=== PATIENT | female | born 1950 | race Hispanic/Latino ===

== ENCOUNTER 2017-03-22 07:03 | Day surgery (SDC) | payer MEDICARE ==
[2017-03-19 12:49] VITALS: BMI 27.3
[2017-03-22 08:20] LABS: HEMATOCRIT 40.5 % (36.0-48.0); MEAN CELL VOLUME 92.3 fL (80.0-105.0); MEAN CORPUSCULAR HEMOGLOBIN 30.5 pg (25.0-35.0); MEAN CORPUSCULAR HGB CONC 33.1 g/dl (31.0-37.0); MEAN PLATELET VOLUME 11.1 fl (7.0-11.0); RED CELL DISTRIBUTION WIDTH 13.4 % (11.5-14.5); WHITE BLOOD COUNT 4.8 10^3/ul (4.5-11.0)
[2017-03-22] MEDS ORDERED: Lidocaine 2% Inj (20ml) ONE (08:28)
[2017-03-22] MEDS ORDERED: Nitroglycerin 50mg in D5W 50 MG/250 ML BOTTLE IV ONE (08:28)
[2017-03-22 08:31] LABS: BLOOD UREA NITROGEN 20 mg/dL (7-21); CALCIUM 10.1 mg/dL (8.4-10.5); CARBON DIOXIDE 27 mmol/L (21-33); CHLORIDE 104 mmol/L (98-107); CHOLESTEROL 214 mg/dL (130-200); GFR AFRICAN-AMERICAN > 60; GLUCOSE,RANDOM 94 mg/dL (70-110); INR 1.05 (0.93-1.08); PARTIAL THROMBOPLASTIN TIME 25.8 Seconds (23.7-30.8); POTASSIUM 4.1 mmol/L (3.6-5.0); SODIUM 141 mmol/L (132-148)
[2017-03-22] MEDS ORDERED: Midazolam 2 MG/2 ML VIAL ONE (08:58)
[2017-03-22] MEDS ORDERED: Bacitracin 500 Units/gm Oint Foilpak UD TOP ONE (09:50)
[2017-03-22] MEDS ORDERED: Sodium Chloride 0.9% 1,000 ML IV SCH (10:00)
[2017-03-22 10:03] VITALS: TEMP 97.5
[2017-03-22] MEDS ORDERED: Bacitracin 500 Units/gm Oint Foilpak UD ONE (11:57)
[2017-03-22 12:16] VITALS: RESP 18; O2SAT 98
[2017-03-22 12:20] VITALS: PULSE 60
[2017-03-22 12:21] VITALS: BP 129/59
--- NOTE | 2017-03-22 16:15 | CARD ---
APPROVED REPORT Procedure(s) performed: Left Heart Catheterization HISTORY The patient is a 66 year-old female with a history of : most recent EF: 75%. (EF Method: RADIONUCLIDE), chronic lung disease, hypertension , MONTERO, chest pain and abnormal stress test maricruz-septal reversible ischemia on stress test dt 03/17/2017.. INDICATION The indication(s) include : positive stress test, chest pain, dyspnea. CASE TECHNIQUE The patient was brought electively to the Cardiac Catheterization Laboratory in a fasting state and was prepped and draped in a sterile manner. The left wrist was infiltrated with 2% Lidocaine subcutaneous anesthesia. A 6 Fr Glidesheath (Radial) sheath was inserted into the left radial artery without difficulty. Coronary angiography was performed using coronary diagnostic catheters. The left coronary system was accessed and visualized with a Diagnostic ,5 Fr JL 3.5 catheter. The right coronary system was accessed and visualized with a Diagnostic ,5 Fr JR 4 catheter. The left ventricle was accessed and visualized with a 5 Fr Pigtail 145 (Angled) catheter. Left ventricular/Aortic Valve gradient assessed on pullback. Left ventriculogram was performed in CONTE projection. Closure device was deployed with a Fr TR Band (Regular) without any complications. The patient tolerated the procedure well and there were no complications associated with the procedure. Vessel Analysis The patient's coronary anatomy is right dominant. The left main coronary artery is a medium size vessel without significant stenosis. The left main bifurcates to the left anterior descending and circumflex. The left anterior descending artery is a medium size vessel with diffuse calcification noted throughout this vessel and without significant stenosis. Very tortous vessel, Distal LAD like a thread, diffusely diseased but no focal flow limiting stenosis. There is a 55-60% stenosis in the very distal segment. Diffusely diseased The circumflex artery is a small size vessel without significant stenosis, diminutive circumflex.. The first obtuse marginal branch is a small size vessel without significant stenosis. The right coronary artery is a large size vessel without significant stenosis. The right posterior descending artery is a very large size vessel without significant stenosis. The right posterolateral branch is a large size vessel without stenosis. Left Ventricle The left ventricle is normal in size with normal contractility. There was no cardiomyopathy. The left ventricular ejection fraction is estimated to be 60-65%. The left ventricular end diastolic pressure is 12-14 mmHg. There was no gradient across the aortic valve upon pullback. Conclusion Non -obstructive CAD, limited to only Very Distal LAD diffusely diseased like a thread, 55-60% stenosis But non focal and non flow limiting. Circumflex is small and diminutive. RCA is a Super dominant vessel. Preserved LV Fx. EF-60-65%, EDP-12-14 mmof Hg. Recommendations Aggressive Medical TherapyCardiac Risk Reduction Program Weight Loss Reduction Program Cc; Drs. Martinez / Michael.
== END 2017-03-22 13:30 | disposition home or self-care (01) ==
LOC: CATH 07:03
PROVIDERS: ATTEND Internal Medicine Cardiovascular Disease
DX: I25.10 Atherosclerotic heart disease of native coronary artery without angina pectoris (principal); I10 Essential (primary) hypertension; E78.5 Hyperlipidemia, unspecified; R94.39 Abnormal result of other cardiovascular function study; R07.9 Chest pain, unspecified; Z79.82 Long term (current) use of aspirin; Z88.0 Allergy status to penicillin; Z88.6 Allergy status to analgesic agent; Z88.5 Allergy status to narcotic agent; J44.9 Chronic obstructive pulmonary disease, unspecified; R06.00 Dyspnea, unspecified
CPT/HCPCS: 36415; 80048; 80061; 85027; 85610; 85730; 86850; 86900; 93458; 93567; 99152; C1769; C1887 ×2; J1644 ×2; J2250; J3010; J7040 ×2; Q9967

== ENCOUNTER 2017-08-09 18:04 | Inpatient (IN) | payer MEDICARE ==
--- NOTE | 2017-08-09 18:27 | ED PDOC ---
Arrival/HPI <Arthur Chadwick - Last Filed: 08/09/17 20:23> - General Historian: Patient - History of Present Illness Time/Duration: 1-3 hours Symptom Onset: Sudden Symptom Course: Unchanged Quality: Pressure Severity Level: Moderate Activities at Onset: Rest Context: Home <MAMADOU GELLER - Last Filed: 08/09/17 21:24> - General Chief Complaint: Palpitations - History of Present Illness Narrative History of Present Illness (Text): 08/09/17 18:27 66 yo F with PMH Hypertension, and borderline Hypercholesterolemia who presents to emergency department from her PMD after experiencing chest pressure earlier 2 hours prior to coming to ED, which she described as an "elephant sitting on her chest", and a/w shortness of breath. Pain was home after shopping in the morning, and was fatigued so she laid down to rest when she began to experience the chest pain. Pt contacted her PMD and went to the office, and was noted to be in Afib on EKG and so she was instructed to go to emergency department. pt states that she had a stress test in March by Dr Rodriguez which showed a "left artery blockage of 55%." pt states that she was on iodine in her 30's for hyperthyroid. pt currently denies chest pain, but still feels her heart racing. psh: hysterectomy, ankle fracture and anal fissure shx: pt denies tobacco, EtOH, or substance abuse. retired (MAMADOU GELLER) Past Medical History - Provider Review Nursing Documentation Reviewed: Yes - Past History Past History: Non-Contributing - Cardiac Hx Cardiac Disorders: Yes Hx Hyperlipemia: Yes Hx Hypertension: Yes Hx Pacemaker: No - Pulmonary Hx Respiratory Disorders: No - Neurological Hx Neurological Disorder: No Hx Paralysis: No - HEENT Hx HEENT Disorder: No - Renal Hx Renal Disorder: No - Endocrine/Metabolic Hx Endocrine Disorders: No - Hematological/Oncological Hx Blood Disorders: No Hx Blood Transfusions: No - Integumentary Hx Dermatological Disorder: No - Musculoskeletal/Rheumatological Hx Musculoskeletal Disorders: Yes Hx Fractures: Yes - Gastrointestinal Hx Gastrointestinal Disorders: No - Genitourinary/Gynecological Hx Genitourinary Disorders: No - Psychiatric Hx Psychophysiologic Disorder: No Hx Emotional Abuse: No Hx Physical Abuse: No Hx Substance Use: No - Past Surgical History Past Surgical History: Non-Contributing - Surgical History Hx Cardiac Catheterization: Yes (May: 55% of left artery (unknown which)) Hx Orthopedic Surgery: Yes (L ankle ) - Anesthesia Hx Anesthesia Reactions: No Hx Malignant Hyperthermia: No - Suicidal Assessment Feels Threatened In Home Enviroment: No <MAMADOU GELLER - Last Filed: 08/09/17 21:24> Family/Social History - Physician Review Nursing Documentation Reviewed: Yes Family/Social History: Other (Heart disease) Smoking Status: Never Smoked Hx Alcohol Use: No Hx Substance Use: No <MAMADOU GELLER - Last Filed: 08/09/17 21:24> Allergies/Home Meds <Arthur Chadwick - Last Filed: 08/09/17 20:23> <MAMADOU GELLER - Last Filed: 08/09/17 21:24> Allergies/Adverse Reactions: Allergies acetaminophen [From Percocet] Allergy (Severe, Verified 08/09/17 18:42) RASH oxycodone [From Percocet] Allergy (Severe, Verified 08/09/17 18:42) RASH Penicillins Allergy (Severe, Verified 08/09/17 18:42) RASH naproxen [From Aleve] Allergy (Verified 08/09/17 18:42) RASH Home Medications: Home Meds Medication Instructions Recorded Confirmed Losartan [Cozaar] 50 mg PO DAILY 03/18/17 08/09/17 Metoprolol Succinate [Toprol XL] 50 mg PO QPM 03/18/17 08/09/17 Montelukast [Singulair] 10 mg PO DAILY 03/18/17 08/09/17 Aspirin [Ecotrin] 81 mg PO DAILY 03/19/17 08/09/17 Calcium Carbonate [Calcium] 600 mg PO BID 03/19/17 08/09/17 Fexofenadine/Pseudoephedrine 1 tab PO DAILY PRN 03/19/17 08/09/17 [Deysi-D 24 Hour Tablet] Review of Systems - Physician Review All systems were reviewed & negative as marked: Yes - Review of Systems Constitutional: Normal. absent: Fevers Cardiovascular: Normal, Palpitations. absent: Chest Pain, Calf Pain, Orthopnea , Syncope Gastrointestinal: absent: Nausea, Vomiting Endocrine: absent: Diaphoresis <MAMADOU GELLER - Last Filed: 08/09/17 21:24> Physical Exam Vital Signs Reviewed: Yes Appearance: Positive for: Well-Appearing Pain Distress: None Mental Status: Positive for: Alert and Oriented X 3 - Systems Exam Head: Present: Atraumatic, Normocephalic Pupils: Present: PERRL Extroacular Muscles: Present: EOMI Conjunctiva: Present: Normal Mouth: Present: Moist Mucous Membranes Neck: Present: Normal Range of Motion. No: Meningeal Signs, MIDLINE TENDERNESS , JVD Respiratory/Chest: Present: Clear to Auscultation, Good Air Exchange. No: Respiratory Distress, Accessory Muscle Use, Wheezes, Tachypneic Cardiovascular: Present: Irregular Rhythm, Tachycardic. No: Murmurs, Muffled Abdomen: Present: Normal Bowel Sounds. No: Tenderness, Distention Back: Present: Normal Inspection. No: CVA Tenderness Upper Extremity: Present: Normal Inspection, Normal ROM. No: Cyanosis, Edema Lower Extremity: Present: Normal Inspection, Normal ROM. No: Edema, Cyanosis, Swelling Neurological: Present: CN II-XII Intact, Speech Normal, Motor Func Grossly Intact, Normal Sensory Function Skin: Present: Warm, Dry Psychiatric: Present: Alert, Oriented x 3 <MAMADOU GELLER - Last Filed: 08/09/17 21:24> Vital Signs Temp Pulse Pulse Resp BP BP Pulse Ox 08/09/17 19:25 77 16 145/83 98 08/09/17 18:38 144 H 152/111 H 08/09/17 18:23 144 H 152/111 H 08/09/17 18:13 98.6 F 144 H 20 152/111 H 100 Medical Decision Making Reassessment Condition: Improved - Critical Care Critical Care Minutes: 30 minutes - Lab Interpretations I have reviewed the lab results: Yes - EKG Interpretation Interpreted by ED Physician: Yes Type: 12 lead EKG <Arthur Chadwick - Last Filed: 08/09/17 20:23> <MAMADOU GELLER - Last Filed: 08/09/17 21:24> ED Course and Treatment: A 66 year old female with chest pain. In agreement with resident note, which includes further HPI details. Patient was seen and evaluated with resident, came up with plan and treatment together. (Arthur Chadwick) 08/09/17 18:57 Impression: 66yo F PMH Hypertension, Hypercholesterolemia who presents per PMD order in Afib w/ RVR Plan: - Reassess and disposition - EKG - Labs - follow up cardiac iso - ASA - Cardizem 10mg - Urinalysis Progress Notes: 08/09/17 18:17 EKG: Ordered, reviewed, and independently interpreted the EKG. Rate : 111 BPM Rhythm : Atrial Fibrillation w/ RVR Interpretation : Nonspecific ST abnormality 08/09/17 19:26 EKG: Ordered, reviewed, and independently interpreted the EKG. Rate : 81 BPM Rhythm : NSR Interpretation : No ST-segment elevations or depressions, no T-wave inversions, normal intervals. 08/09/17 19:29 CHADSVASc score 3, Eliquis given 08/09/17 21:00 CXR Impression: As read by me, no pneumothorax, no pneumonia, no cardiomegaly, no infiltrates (MAMADOU GELLER) - Critical Care Narrative Critical Care (Text): 08/09/17 20:06 seen immediately on arrival due to rapid afib with RVR and active chest pain. pt responded to 10iv cardizem with improvement. ischemic changes on EKG resovled with rate control. given NOAC eliquis as stroke prophylaxis, although likely paroxysmal PMD will admit pt for workup of new afib. 08/09/17 20:09 seen with resident and i examined pt myself and managed pt with him. (Arthur Chadwick) - Lab Interpretations Lab Results: 08/09/17 18:25 Lab Results 08/09/17 18:25: WBC 5.9 D, RBC 4.50, Hgb 14.2, Hct 41.8, MCV 92.9, MCH 31.6, MCHC 34.0, RDW 13.0, Plt Count 265, MPV 11.6 H, Gran % 44.3 L, Lymph % (Auto) 45.1 H, [place] % (Auto) 7.7 H, Eos % (Auto) 2.6, Baso % (Auto) 0.3, Gran # 2.60, Lymph # 2.7, [place] # 0.5, Eos # 0.2, Baso # 0.02 - EKG Interpretation EKG Interpretation (Text): 08/09/17 20:04 rapid atrial fib of 111 with ischemic changes in lateral leads v3,4, 5 and v6. 2nd EKG improved and now in NSR. (Arthur Chadwick) - Medication Orders Current Medication Orders: Apixaban (Eliquis) [address] PRN Reason: Protocol Aspirin (Ecotrin) [address] Calcium Carbonate (Oscal) [address] Diltiazem HCl (Cardizem Cd) [address] Montelukast Sodium (Singulair) [address] [facility] Discontinued Medications Aspirin (Ecotrin) 162 mg PO STAT STA Stop: 08/09/17 18:18 Last Admin: 08/09/17 18:59 Dose: 162 mg Diltiazem HCl (Cardizem) 10 mg IVP STAT STA Stop: 08/09/17 18:17 Last Admin: 08/09/17 18:38 Dose: 10 mg IVP Administration Document 08/09/17 18:38 MR (Rec: 08/09/17 18:40 [id number]) Charges for Administration # of IVP Administrations 1 JAN Pulse and Blood Pressure Document 08/09/17 18:38 MR (Rec: 08/09/17 18:40 [id number]) Pulse Pulse Rate (60-90) 144 Blood Pressure Blood Pressure (100/60-150/90) 152/111 - PA / [employer] / Resident Statement / has reviewed & agrees with the documentation as recorded. / has examined the patient and agrees with the treatment plan. - Scribe Statement The provider has reviewed the documentation as recorded by the Scribe <Arthur Chadwick - Last Filed: 08/09/17 20:23> <MAMADOU GELLER - Last Filed: 08/09/17 21:24> - Scribe Statement Renita Villanueva Provider Scribe Attestation: All medical record entries made by the Scribe were at my direction and personally dictated by me. I have reviewed the chart and agree that the record accurately reflects my personal performance of the history, physical exam, medical decision making, and the department course for this patient. I have also personally directed, reviewed, and agree with the discharge instructions and disposition. (Arthur Chawdick) Disposition/Present on Arrival - Present on Arrival Any Indicators Present on Arrival: No History of DVT/PE: No History of Uncontrolled Diabetes: No Urinary Catheter: No History of Decub. Ulcer: No - Disposition Have Diagnosis and Disposition been Completed?: Yes Disposition Time: 20:06 Patient Plan: Admission, Telemetry <Arthur Chadwick - Last Filed: 08/09/17 20:23> <MAMADOU GELLER - Last Filed: 08/09/17 21:24> - Disposition Diagnosis: Atrial fibrillation with rapid ventricular response Disposition: HOSPITALIZED Patient Problems: Current Active Problems Problem Status Onset Atrial fibrillation with rapid ventricular response Acute Condition: IMPROVED
[2017-08-09 19:00] LABS: BASO # 0.02 K/mm3 (0.0-2.0); BASO % 0.3 % (0.0-3.0); EOS # 0.2 (0.0-0.7); EOS % 2.6 % (1.5-5.0); GRAN # 2.6 (1.4-6.5); GRAN % 44.3 % (50.0-68.0); HEMATOCRIT 41.8 % (36.0-48.0); LYMPH # 2.7 (1.2-3.4); LYMPH % 45.1 % (22.0-35.0); MEAN CELL VOLUME 92.9 fl (80.0-105.0); MEAN CORPUSCULAR HEMOGLOBIN 31.6 pg (25.0-35.0); MEAN PLATELET VOLUME 11.6 fl (7.0-11.0); MONO # 0.5 (0.1-0.6); MONO % 7.7 % (1.0-6.0); WHITE BLOOD COUNT 5.9 10^3/ul (4.5-11.0)
[2017-08-09 20:38] LABS: ALB/GLOB RATIO 1.4 (1.1-1.8); ALKALINE PHOSPHATASE 80 U/L (38-126); ALT/SGPT 20 U/L (7-56); AST/SGOT 26 U/L (14-36); BILIRUBIN,TOTAL 0.3 mg/dL (0.2-1.3); BLOOD UREA NITROGEN 21 mg/dL (7-21); CALCIUM 9.6 mg/dL (8.4-10.5); CARBON DIOXIDE 27 mmol/L (21-33); CHLORIDE 106 mmol/L (98-107); GFR AFRICAN-AMERICAN > 60; GLUCOSE,RANDOM 101 mg/dL (70-110); MAGNESIUM 1.7 mg/dL (1.7-2.2); POTASSIUM 4.2 mmol/L (3.6-5.0); SODIUM 143 mmol/L (132-148); TOTAL PROTEIN 6.8 g/dL (5.8-8.3)
[2017-08-09 20:50] LABS: TROPONIN I < 0.01 ng/mL
[2017-08-09 21:08] LABS: THYROID STIMULATING HORMONE 2.01 mIU/mL (0.46-4.68)
[2017-08-09] MEDS: diltiaZEM 180 mg/24 Hours CD Cap PO SCH (21:49)
[2017-08-09 22:58] VITALS: RESP 20; BMI 28.1
[2017-08-10 02:44] LABS: TROPONIN I < 0.01 ng/mL
--- NOTE | 2017-08-10 02:49 | HP ---
HISTORY OF PRESENT ILLNESS: The patient is seen in the emergency room with chest discomfort of sudden onset. The patient states that she started having this discomfort while lying down in bed resting, and she was not doing any work at that time. The patient denies any shortness of breath. She was seen in the emergency room and evaluated. PAST MEDICAL HISTORY: Significant that she has history of hypertension. The patient also has history of borderline hyperlipidemia, evaluated for chest pain in the past with cardiac cath, stress test, echocardiogram, etc. The patient also has past history of hysterectomy. She has had a fracture of the ankle. SOCIAL HISTORY: The patient does not smoke. Does not drink. She does not have living will at this time. FAMILY HISTORY: The patient has family history of coronary artery disease, father and mother. PHYSICAL EXAMINATION VITAL SIGNS: The patient was in atrial fibrillation at the time of evaluation in the emergency room. The patient's blood pressure was 160/110 initially. The patient was treated with Cardizem IV drip and the heart rate converted for atrial fibrillation into almost sinus rhythm. ABDOMEN: Soft. Liver and spleen are not palpable. LUNGS: Trachea is central. Breath sounds are vesicular. No adventitious sounds. CENTRAL NERVOUS SYSTEM: The patient is conscious, rational, and oriented. The patient has no focal neurological deficits. MEDICATIONS: The patient's medications consists of; Singulair 10 mg daily, the patient is on metoprolol 50 mg once daily, the patient is on losartan 50 mg daily. The patient takes Deysi-D 24, once a day, calcium carbonate, aspirin, Ecotrin 81 mg daily. The patient is on a heart-healthy diet. ALLERGIES: THE PATIENT IS ALLERGIC TO PERCOCET. THE PATIENT IS ALLERGIC TO OXYCODONE, ALLERGIC TO PENICILLIN AND NAPROSYN. The patient's electrogastrogram shows nonspecific ST-T wave changes initially atrial fibrillation with rapid ventricular response. LABORATORY DATA: The patient's blood work has not been completed. The patient is comfortable. We placed the patient on alternative medications at this time. She will be on Cardizem 180 mg b.i.d. She will take losartan 50 mg daily, aspirin 81 mg, and we placed the patient on Eliquis 5 mg b.i.d. Diet as mentioned that the patient will be on 2 g sodium diet, heart-healthy. Sil Quiroz MD [facility] # [id number]
[2017-08-10 05:49] LABS: BASO # 0.04 K/mm3 (0.0-2.0); EOS # 0.2 (0.0-0.7); EOS % 4.1 % (1.5-5.0); GRAN # 1.45 (1.4-6.5); GRAN % 37.2 % (50.0-68.0); HEMATOCRIT 38.9 % (36.0-48.0); LYMPH # 1.9 (1.2-3.4); LYMPH % 47.7 % (22.0-35.0); MEAN CELL VOLUME 92.6 fl (80.0-105.0); MEAN CORPUSCULAR HEMOGLOBIN 30.2 pg (25.0-35.0); MEAN CORPUSCULAR HGB CONC 32.6 g/dl (31.0-37.0); MEAN PLATELET VOLUME 10.8 fl (7.0-11.0); MONO # 0.4 (0.1-0.6); RED CELL DISTRIBUTION WIDTH 13.2 % (11.5-14.5); WHITE BLOOD COUNT 3.9 10^3/ul (4.5-11.0)
[2017-08-10 07:41] LABS: BLOOD UREA NITROGEN 19 mg/dL (7-21); CALCIUM 9.4 mg/dL (8.4-10.5); CARBON DIOXIDE 28 mmol/L (21-33); CHLORIDE 108 mmol/L (98-107); GFR AFRICAN-AMERICAN > 60; GLUCOSE,RANDOM 91 mg/dL (70-110); POTASSIUM 4.2 mmol/L (3.6-5.0); SODIUM 144 mmol/L (132-148)
--- NOTE | 2017-08-10 08:01 | RAD ---
HISTORY: chest pain COMPARISON: No prior. FINDINGS: LUNGS: No active pulmonary disease. PLEURA: No significant pleural effusion identified, no pneumothorax apparent. CARDIOVASCULAR: Normal. OSSEOUS STRUCTURES: No significant abnormalities. VISUALIZED UPPER ABDOMEN: Normal. OTHER FINDINGS: None. IMPRESSION: No active disease.
[2017-08-10 09:03] LABS: TROPONIN I < 0.01 ng/mL
[2017-08-10] MEDS: diltiaZEM 180 mg/24 Hours CD Cap PO SCH ×2 (09:10→17:19)
[2017-08-10 09:31] LABS: FREE T4 0.96 ng/dL (0.78-2.19)
--- NOTE | 2017-08-10 09:43 | CARD ---
APPROVED REPORT EKG Measurement Heart [id number] <Conclusion> Atrial fibrillation with rapid ventricular response Nonspecific ST abnormality, probably digitalis effect Abnormal ECG
--- NOTE | 2017-08-10 10:38 | PN ---
DATE: SUBJECTIVE: The patient is admitted into room 264, bed 1 last night. The patient presented with chest discomfort and hypertension. 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 The patient also history of fracture of the ankle, history of anal fissure. The patient has mild hyperlipidemia. The patient has been treated for stress-related esophagitis. The patient was treated in the emergency room, and at the time of emergency room visit, the patient was found to be in atrial fibrillation with rapid ventricular response. The patient was given Cardizem and she converted. She was admitted for further evaluation and treatment. PHYSICAL EXAMINATION VITAL SIGNS: This morning, the patient's pulse is 76; blood pressure 149/80; respirations are 20; the patient's O2 saturation is 100% on room air. HEENT: Examination of the head is normocephalic. NECK: The thyroid is not clinically enlarged. The thyroid function studies were within normal limits. The JVP is flat. Carotid pulses are palpable. The patient has no murmurs in the neck. HEART: Examination of the heart, normal sinus rhythm this morning. The patient's heart rate is 76. There are no rubs, pericardial rubs, or murmurs heard. LUNGS: Trachea is central. Breath sounds are vesicular. No adventitious sounds are heard. ABDOMEN: Soft. Liver and spleen are not palpable. No ascites. CENTRAL NERVOUS SYSTEM: The patient is conscious, rational, and oriented. There are no cranial abnormalities. Cranial nerves II to XII within normal limits. The patient's sense of smell is present and sense of hearing is good. The patient's motor, sensory functions are within normal limits. The patient's cerebellar functions are within normal limits. The patient is steady and has no difficulty in gait. The patient will be evaluated by . DIAGNOSTICS DATA: The patient has had recent cardiac workup consisting of stress test, echocardiogram. The patient also had evaluation by cardiac catheterization, recent not too long ago. The patient is clinically stable. MEDICATIONS: The patient's medications are changed. Right now, the patient is on Cardizem 180 mg b.i.d. The metoprolol, which is beta-hakeem, was discontinued. The patient will be treated with the current medication, which is Cardizem 180 b.i.d. and aspirin 81 mg daily. The patient is on Eliquis 5 mg b.i.d., calcium carbonate for osteoporosis prevention, montelukast, which is Singulair 10 mg daily. LABORATORY DATA: The patient's white count is 3.9, white cells. The patient's differential shows 37 granulocytes, 47 lymphocytes. 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 Chemistry, the patient's blood sugar is 101 and 91. The patient's renal functions are within normal limits. Sodium is 144. The patient's TSH is 2.01. The troponins are within normal range. There is no evidence or suggestion of myocardial damage at this time. ASSESSMENT AND PLAN: Follow up with international bank manager and plan for further management as advised. Sil Quiroz MD
--- NOTE | 2017-08-10 22:59 | CON ---
DATE OF SERVICE: 08/10/2017 CONSULT SERVICE: Cardiology. REASON FOR THE CONSULTATION: Paroxysmal atrial fibrillation, uncontrolled hypertension. BRIEF CLINICAL HISTORY: This is a 66-year-old female with past medical history significant for hypertension; nonobstructive coronary artery disease; having recent cold symptoms, given Zithromax, seen two weeks ago by Dr. Bravo. Yesterday, has a feeling palpitation around 4 p.m. She went to see Dr. Bravo, found to be in AFib and feel that something big sitting in her chest, came to the emergency room and found to be in AFib, 20 mg of IV Cardizem was given and the patient converted to normal sinus. Since then, the patient remained in normal sinus. PAST MEDICAL HISTORY: Significant for hypertension, dyspnea on exertion. PREVIOUS CARDIAC WORKUP: As follows, the patient has stress test 03/17/2017 that showed probably abnormal myocardial perfusion study with ejection fraction 75%, reversible anteroseptal suggestive of ischemia. The patient had echocardiogram on 03/17/2017 that showed a normal LV size and LV thickness, normal LV function ejection fraction of 64%. Following this, the patient went into cardiac catheterization on 03/22/2017 that revealed nonobstructive coronary artery disease, limited only to very distal LAD diffusely diseased, likely 55%-60% stenosis, but no focal flow limiting stenosis, circumflex is small and diminutive. Ostial is a super-dominant vessel essentially free of significant disease. LV function ejection fraction of 65%, EDP was in the range of 12-14. Medical treatment recommended. CURRENT MEDICATIONS: The patient is at home taking Singulair, metoprolol succinate 50 mg, Losartan 50, calcium carbonate and aspirin. REVIEW OF SYSTEMS: As per HPI. ALLERGIES: ACETAMINOPHEN, OXYCODONE, PENICILLIN, NAPROSYN. PHYSICAL EXAMINATION: As follows; VITAL SIGNS: Temperature afebrile, heart rate 60, blood pressure 157/74. HEENT: PERRLA. Extraocular muscles intact. NECK: Supple. No carotid bruits. No thyromegaly. CHEST: Clear to auscultation. HEART: S1 and S2 regular. ABDOMEN: Soft. EXTREMITIES: Clubbing and cyanosis negative. LABORATORY DATA: Blood workup as follows: WBC 3.9, hemoglobin 12.7 and hematocrit 38.9, platelet count 217. Chemistry shows sodium 144, potassium 4.0, chloride 108, carbon dioxide 28, anion gap of 12, BUN 19, creatinine 0.7. Troponin is 0.01 negative. TSH was 2.01. LDL 123, HDL 62, total cholesterol 214. IMPRESSION: Paroxysmal atrial fibrillation converted to normal sinus in the emergency room with IV Cardizem. Since then, the patient is in normal sinus, metoprolol was changed to Cardizem CD [address] Bravo. Continue aspirin and continue Eliquis today, but we will discontinue tomorrow if the patient has a very short live atrial fibrillation. So, after tomorrow morning dose, we will discontinue if remained in normal sinus and the patient can be discharged on aspirin and Cardizem. Suggest low dose of atorvastatin. We will see the blood pressure response. If need, we can add on low dose of atenolol 25 b.i.d. Depending upon the heart and blood pressure response, the patient is currently being started on Cardizem CD 180 b.i.d. We will repeat the blood work up in the morning and we will discontinue Eliquis tomorrow. We will follow with you. Thank you Dr. Bravo for providing us the opportunity in taking care of the patient, Komal Reyes. Aminah Pimentel MD
[2017-08-11 06:13] VITALS: TEMP 97.8; O2SAT 99
[2017-08-11 06:46] LABS: BLOOD UREA NITROGEN 14 mg/dL (7-21); CARBON DIOXIDE 29 mmol/L (21-33); CHLORIDE 105 mmol/L (95-110); GFR AFRICAN-AMERICAN > 60; GLUCOSE,RANDOM 99 mg/dL (70-110); PHOSPHOROUS 3.4 mg/dL (2.5-4.5); POTASSIUM 4.5 mmol/L (3.6-5.0); SODIUM 142 mmol/L (132-148)
[2017-08-11] MEDS: diltiaZEM 180 mg/24 Hours CD Cap PO SCH (09:23)
[2017-08-11 09:30] VITALS: BP 164/91; PULSE 82
[2017-08-11 09:30] LABS: CHOLESTEROL 216 mg/dL (130-200)
--- NOTE | 2017-08-11 12:42 | PN ---
DATE: 08/11/2017 REASON FOR CONSULTATION: Paroxysmal atrial fibrillation and controlled hypertension. SUBJECTIVE: Sitting in the bed and feels okay. No chest pain. No shortness of breath. No palpitation. OBJECTIVE: GENERAL: Sitting in the bed, not in apparent distress. VITAL SIGNS: Temperature afebrile, heart rate 81, and blood pressure 144/66. HEENT: PERRLA. Extraocular muscles intact. NECK: Supple. No carotid bruit or thyromegaly. CHEST: Clear to auscultation. HEART: S1 and S2 regular. ABDOMEN: Soft. EXTREMITIES: Clubbing and cyanosis negative. LABORATORY DATA: Blood workup as follows: WBC 3.9, hemoglobin 12.7, hematocrit 38.9, and platelet count 217. Chemistries show sodium 142, potassium 4.5, chloride 105, carbon dioxide 29, anion gap of 13, BUN 14, and creatinine 0.7. Troponin 0.01 negative. IMPRESSION: Paroxysmal atrial fibrillation converted to normal sinus, on Cardizem IV. Since then, the patient is being in normal sinus, EKG shows normal sinus. Recent cardiac workup negative. The patient had stress test on 03/17/2017. Ejection fraction 75%. Abnormal stress test suggestive of ischemia, followed that the patient had cardiac catheterization done on 03/22/2017 that revealed nonobstructive coronary artery disease limited only to very distal left anterior descending diffusely disease. No focal flow limiting stenosis noted. Preserved left ventricular function, ejection fraction 65%, end-diastolic pressure in the range of 12 to 14, and hyperlipidemia. RECOMMENDATIONS: The patient started on Cardizem p.o. [address] Quiroz and we will continue that. Eliquis is started, but we will discontinue after the morning dose because AFib was very short live and since then the patient in normal sinus. Continue baby aspirin. Continue atorvastatin because that will add on the cholesterol level. Interim, continue Lipitor. We will discontinue telemetry, possible discharge today. Discussed with Dr. Quiroz and discussed with the patient. We will add lipid profile to the blood. We will discontinue telemetry. Thank you Dr. Quiroz for providing us the opportunity in taking care of the patient, Komal Kofirufinorema. Aminah Pimentel MD
--- NOTE | 2017-08-11 13:24 | PN ---
DATE: LOCATION: The patient is seen in the [facility] in [place], room 264, bed 1. SUBJECTIVE: She is a 66-year-old white female. She was admitted with acute onset of atrial fibrillation. The patient has no past history of atrial fibrillation. The patient has history of hypertension, allergic rhinitis, history of gastritis. The patient also has history of migrainous headache on and off. The patient is seen this morning. She said she has a heavy head, otherwise the patient feels much better. PHYSICAL EXAMINATION VITAL SIGNS: The patient's pulse is 81, blood pressure 144/66, respirations 20, O2 sat is 99% on room air. HEENT: The patient's head is normocephalic. No evidence of any abnormal physical signs. NECK: JVP is flat. Carotid pulses are present. The thyroid is clinically not enlarged. Thyroid functions are within normal limits. LUNGS: Trachea is central. Breath sounds vesicular. No adventitious sounds. HEART: Normal sinus rhythm. S1, S2 present. The patient has no murmurs. No pericardial rub. ABDOMEN: Soft. Liver and spleen not palpable. No ascites. CENTRAL NERVOUS SYSTEM: The patient is conscious, rational and oriented. Cranial nerves are intact. The patient does have a sense of smell as well as the hearing is normal. The patient's motor, sensory functions are within normal limits. Cerebellar functions are within normal limits. The patient is able to ambulate. She is comfortable. LABORATORY DATA: The patient's blood work has been repeated multiple times. There is no cardiac injury noted. The patient's cardiac evaluation done by Dr. Pimentel says the patient does not need any anticoagulation at this time, which is appropriate. MEDICATIONS: Currently, the patient is on Cardizem 180 mg b.i.d. The patient is on aspirin 81 mg daily. She is on simvastatin 20 mg daily. We will keep the patient on these medications. He will get losartan 25 mg. In addition, she will continue Deysi at home and Singulair too for asthma and rhinitis. ASSESSMENT AND PLAN: We will continue current management. I will see the patient in 2 weeks in the office and follow up on the patient's medications and management. Her prognosis is good and condition is stable. Sil Quiroz MD [facility] # [id number]
--- NOTE | 2017-08-12 02:10 | CARD ---
APPROVED REPORT EKG Measurement Heart [id number] MD [id number] <Conclusion> Normal sinus rhythm Normal ECG
--- NOTE | 2017-08-12 11:25 | CARD ---
APPROVED REPORT EKG Measurement Heart [id number] <Conclusion> Normal sinus rhythm Normal ECG
== END 2017-08-11 12:30 | disposition home or self-care (01) | DRG 310 ==
LOC: ED 18:04 → ERH 20:00 → 2RNO 21:18
PROVIDERS: ADMIT Internal Medicine; ATTEND Internal Medicine
DX: I48.0 Paroxysmal atrial fibrillation (principal); I10 Essential (primary) hypertension; E78.00 Pure hypercholesterolemia, unspecified; I25.10 Atherosclerotic heart disease of native coronary artery without angina pectoris; K29.70 Gastritis, unspecified, without bleeding; J30.9 Allergic rhinitis, unspecified; G43.909 Migraine, unspecified, not intractable, without status migrainosus; Z90.710 Acquired absence of both cervix and uterus; Z88.0 Allergy status to penicillin; Z82.49 Family history of ischemic heart disease and other diseases of the circulatory system; Z79.82 Long term (current) use of aspirin